=== PATIENT | male | born 1940 | race Caucasian/White ===

== ENCOUNTER 2025-01-07 14:06 | Emergency (ER) | payer OTHER, MEDICARE ==
[~2025-01-07] VITALS: Ht 172.7 cm; Wt 92.5 kg
--- NOTE | 2025-01-07 14:44 | NUR ---
PT STATES HE WAS AT THE HOSPITAL AND BEGAN HAVING BACK PAIN BECAUSE OF METAL BARS ON THE BED. PT STATES HE WAS GIVEN PAIN MEDICATION THAT HE TOOK AT HOME. PT REPORTS HE WAS FEELING BETTER AND TODAY HE WAS NOT ABLE TO GET OUT OF BED. PT STATES HE ATTEMPTED TO GET OUT OF BED TODAY AND WAS NOT ABLE TO DO SO AND FELL FORWARD, LANDING ON HIS BELLY. PT STATES HE IS ONLY CONCERNED ABOUT HIS BACK PAIN AT THIS TIME. THE PAIN THAT HAS BEEN UNCHANGED SINCE HE WAS LAST TENDED TO AT [facility] [place].
[2025-01-07] MEDS: ketOROlac 15MG/ML VIAL (15MG/ML) IV ONE (14:56)
[2025-01-07] MEDS: diazePAM 5 MG/ML 2 ML SYG IVP ONE (14:56)
--- NOTE | 2025-01-07 15:03 | ERN ---
ED Note History of Present Illness Stated Complaint: FALL, LOW BACK PAIN Chief Complaint: Mechanical Fall Time Seen by MD: 14:21 Dictation: 84-year-old male presents to the ED via EMS for evaluation of back pain onset one day ago. Patient reports he went to the hospitalist which is when the pain started, he was also seen at the [facility] and was prescribed medication for the pain. Patient states this morning he was unable to get out of bed just with pain and rolled off sustaining a fall, no LOC, no head injury or no hip pain. Allergies: Coded Allergies: No Known Drug Allergies (Unverified Allergy, Unknown, 01/07/25) Past Medical History Past Medical History: CAD, CVA, Diabetes-Type II, Hypertension Surgical History: None Review of System Dictation Constitutional: Negative for fever,chills, and weight loss Eyes: Negative for injury, pain,redness, and discharge ENT: Negative for injury,pain or swelling Cardiovascular: Negative for chest pain, palpitations, and edema Respiratory: Negative for shortness of breath, cough, and wheezing, Abdomen/GI: Negative for abdominal pain, nausea, vomiting, diarrhea, and constipation Back: Positive for back pain : Negative for injury, bleeding and discharge MS/Extremity: Negative for injury and deformity Skin: Negative for rash, and discoloration Neuro: Negative for headache, weakness, numbness, tingling, and seizure Psych: Negative for suicide ideation, homicidal ideation, and hallucinations Initial Vital Sign VS Vital Signs Date Time Temp Pulse Resp B/P (MAP) Pulse Ox O2 Delivery O2 Flow Rate FiO2 01/07/25 14:06 65 20 182/115 94 Room Air 0 01/07/25 14:41 21 01/07/25 15:30 98.1 Physical Exam Dictation General: awake, alert, NAD Head/Face: Normocephalic, atraumatic Eyes: PERRL, EOMI, vision at baseline ENT: oral cavity clear, TMs clear, no signs of infection Neck: Trachea midline, supple, no nuchal rigidity Cardiovascular: RRR, normal S1/S2, No MRGs, no JVD Respiratory: CTAB, no respiratory distress, No rales or wheezes Abdomen: Soft, non-tender, non-distended, normal bowel sounds, no guarding or rebound. Skin: Warm, dry, normal turgor, no rash MS/Extremity: Pulses equal, no cyanosis, neurovascular intact, FROM Neuro: COAx4, GCS 15, strength 5/5, CN 2-12 intact, normal cerebellar exam, normal gait, Psych: Normal behavior, mood, and affect normal ED Course ED Course Orders Procedure Category Date Status Time Diazepam 5 Mg/Ml 2 Ml PHA 01/07/25 Complete Syg (Valium 5 Mg/M 15:00 Ketorolac PHA 01/07/25 Complete Tromethamine 15mg/Ml 15:00 Ct Pelvis W/O Contrast CT 01/07/25 Resulted 16:02 Current Medications Medications (Trade) Dose Ordered Sig/Lalo Route PRN Reason Start Time Stop Time Status Last Admin Dose Admin Diazepam (VALium 5 MG/ML 2 ML SYG) 2.5 mg ONCE ONCE IVP 01/07/25 15:00 01/07/25 15:01 DC 01/07/25 14:56 Ketorolac Tromethamine (toRADol) 15 mg ONCE ONCE IV 01/07/25 15:00 01/07/25 15:01 DC 01/07/25 14:56 Vital Signs Date Time Temp Pulse Resp B/P (MAP) Pulse Ox O2 Delivery O2 Flow Rate FiO2 01/07/25 16:00 98.1 62 18 149/72 95 Room Air* 0 21 01/07/25 15:30 98.1 63 18 161/74 94 Room Air* 0 21 01/07/25 14:41 63 18 170/79 95 Room Air* 0 21 01/07/25 14:06 65 20 182/115 94 Room Air 0 Medical Decision Making MDM MDM: Differential diagnosis: Back pain, fall, contusion Risk of complication and/or morbidity or mortality of patient management: None Medications-Per medication reconciliation Need for hospitalization: Patient does not meet criteria for hospitalization. Need for emergency major/minor surgery: No There are no social concerns with this patient. Prescription drug management Prescriptions will include symptomatic care I independently interpreted the test that were performed, results were reviewed by me and considered findings on radiology if ordered. Medical management and examination interpretation discussions were had by me with other qualified healthcare professionals as indicated for the patient's care. DX & DISP Disposition: Discharge Departure Impression: Primary Impression: Acute low back pain Condition: Stable Scripts Acetaminophen (Tylenol) 325 Mg Tablet 1 TAB PO Q4HPRN PRN for pain or fever for 5 Days, #30 TAB 0 Refills Prov: MARCO A MASTERSON MD 01/07/25 Referrals: SOURAV ADAMS MD (PCP) MARCO A MASTERSON MD Jan 07, 2025 15:03
--- NOTE | 2025-01-07 17:12 | HMCIMG ---
CT PELVIS W/O CONTRAST HISTORY: Low back pain. COMPARISON: None TECHNIQUE: Multiple sequential axial images of the pelvis were obtained from the iliac crests through symphysis pubis. Patient was not given contrast through intravenous route. Oral contrast was not given. FINDINGS/IMPRESSION: Mild calcific plaque is noted along the abdominal aortic and iliac vessel jenkins without aneurysmal dilation. Visible small and large bowel loops as well as terminal ileum and appendix appear normal. Urinary bladder appears normal without any evidence for intrapelvic free air, free fluid, or lymphadenopathy. No evidence for fracture or dislocation, including normal appearance of both hip and sacroiliac joints as well as visible portions of the lower lumbar spine.
[2025-01-07] MEDS ORDERED: ACET-2247 PO (17:45)
[2025-01-07 18:02] VITALS: BP 149/78; PULSE 78; RESP 18; TEMP 98.3; O2SAT 98
== END 2025-01-07 18:03 | disposition home or self-care (01) ==
LOC: EDH 14:06
DX: M54.50 Low back pain, unspecified (principal); I25.10 Atherosclerotic heart disease of native coronary artery without angina pectoris; I10 Essential (primary) hypertension; E11.9 Type 2 diabetes mellitus without complications; Z86.73 Personal history of transient ischemic attack (TIA), and cerebral infarction without residual deficits
CPT/HCPCS: 99285; 96374; 72192; 96375; J1885; J3360